=== PATIENT | female | born 1965 | race Hispanic/Latino ===

== ENCOUNTER 2022-05-17 07:59 | Emergency (ER) | payer SELFPAY ==
[2022-05-17 08:50] VITALS: BP 120/69; PULSE 76; RESP 18; TEMP 36.8; O2SAT 100
--- NOTE | 2022-05-17 08:59 | ED.EYEPROB ---
HPI - Eye Problem General Chief complaint: Eye Problems Stated complaint: eye Time Seen by Provider: 05/17/22 08:52 History of Present Illness HPI Narrative: Patient is a 57-year-old [place]-speaking female here for evaluation of left eye irritation over the past year. Patient states that after she eats certain foods her eyes will start to water and become irritated, L>R. She has not attempted any medication for the issue. Denies any eye pain, visual changes, blurry vision, double vision, thick white discharge from the eye, headaches or unilateral weakness. She does not have a primary doctor and has not seen anyone for the issue yet. Came in today because her friend was also being seen and wanted to get it checked out. Related Data Allergies Allergy/AdvReac Type Severity Reaction Status Date / Time No Known Allergies Allergy Verified 05/17/22 08:59 Review of Systems Review of Systems: Gen.: Denies fevers or chills Eyes: Reports eye discharge ENT: Denies congestion Respiratory: Denies shortness of breath or cough CV: Denies chest pain or palpitations GI: Denies abdominal pain nausea, emesis or diarrhea denies burning, urgency, frequency or hematuria Musculoskeletal: Denies back pain or muscle pain Neuro: Denies numbness, tingling, weakness or focal weakness Skin: Denies rash Except as documented, all other systems reviewed and negative Exam Narrative: Gen: Alert, oriented, no acute distress Eyes: Pupils are equal round and reactive to light. Eyes are grossly normal in appearance, no conjunctival injection or discharge noted Pulm: Respirations even and unlabored, symmetric thorax expansion, no audible stridor or visible cyanosis CV: Regular rate per telemetry GI: No distension, no voluntary/involuntary guarding Neuro: AOx4, moves all extremities without apparent difficulty or weakness, follows commands Skin: No jaundice, no visible bruising, rashes, lesions or wounds on exposed skin Psych: Normal mood/affect, insight/judgement good, adequate fund of knowledge, recent/remote memory intact Course Vital Signs Vital signs: Vital Signs Temperature 98.2 F 05/17/22 08:50 Pulse Rate 76 05/17/22 08:50 Respiratory Rate 18 05/17/22 08:50 Blood Pressure 120/69 05/17/22 08:50 Pulse Oximetry 100 05/17/22 08:50 Oxygen Delivery Room Air 05/17/22 08:50 Temperature 98.2 F 05/17/22 08:50 Pulse Rate 76 05/17/22 08:50 Respiratory Rate 18 05/17/22 08:50 Blood Pressure 120/69 05/17/22 08:50 Pulse Oximetry 100 05/17/22 08:50 Oxygen Delivery Room Air 05/17/22 08:50 MDM - Eye Problem MDM Narrative Medical decision making narrative: 57-year-old female here for evaluation of eye irritation over the past year. Unclear etiology of symptoms, doubt site threatening issue today given the chronicity. Her eyes are grossly normal in appearance, her pupils are equal round and reactive to light and her conjunctivae are clear. This may be an allergic conjunctivitis or vasomotor conjunctivitis; she will be discharged home with eyedrops to attempt. She was given primary care follow-up. Return precautions discussed and she voiced understanding. Discharge Plan Discharge Clinical Impression: Allergic conjunctivitis Patient Disposition: Home, Self-Care Condition: Stable Instructions: Antibiotic Form, Conjunctivitis (ED) Additional Instructions: Your symptoms today are likely due to allergic conjunctivitis. Please use the eyedrops as directed. Return to the ED if you develop eye pain, nausea, eye redness, or decreased vision from your eye. Follow-up with your primary care doctor next week. Prescriptions: New ketotifen fumarate [Zaditor] 0.025 % (0.035 %) drops 1 drp EACH EYE BID PRN (Reason: allergy symptoms) Qty: 5 0RF Rx Instructions: administer at least 8 hours apart Follow-up/Referrals: Shahram Spivey MD [Physician] - 1 Week PHYSICIAN,[employer]PERATOR [Primary Care Provider] -
== END 2022-05-17 10:10 | disposition home or self-care (01) ==
LOC: ANHED 10:07
PROVIDERS: Emergency Provider Physician Assistant
DX: H10.12 Acute atopic conjunctivitis, left eye (principal)
CPT/HCPCS: 99283